=== PATIENT | female | born 1995 | race Caucasian/White ===

== ENCOUNTER → 2019-01-05 | Emergency (ER) | payer OTHER ==
[~2019-01-05] VITALS: Ht 162.6 cm; Wt 51.7 kg
[~2019-01-05] MED LIST: DICLOFENAC SODI50 MG PO; KETO10TA2 PO; SULFAMETHOXAZOL1 TA6 PO
== END | disposition home or self-care (01) ==
LOC: ER 21:07
DX: N30.80 Other cystitis without hematuria (principal)